=== PATIENT | female | born 1960 | race Caucasian/White ===

== ENCOUNTER → 2023-06-23 06:31 | Day surgery (SDC) | payer OTHER, SELFPAY | LOC: GI 06:31 | PROVIDERS: ATTENDING PHYSICIAN Internal Medicine | DX: K57.30 Diverticulosis of large intestine without perforation or abscess without bleeding (principal); K64.9 Unspecified hemorrhoids; R93.3 Abnormal findings on diagnostic imaging of other parts of digestive tract; Z98.890 Other specified postprocedural states; Z87.19 Personal history of other diseases of the digestive system | CPT/HCPCS: 45330 ==

== ENCOUNTER 2023-08-23 06:16 | Day surgery (SDC) | payer OTHER, SELFPAY ==
[2023-08-23 11:00] VITALS: BP 133/96
[2023-08-23 11:06] VITALS: BMI 28.8
[2023-08-23 13:10] VITALS: BP 114/83
[2023-08-23 13:30] VITALS: BP 121/88
[2023-08-23 13:45] VITALS: BP 150/103
== END 2023-08-23 14:00 | disposition home or self-care (01) ==
LOC: SDS 06:16
PROVIDERS: ATTENDING PHYSICIAN Internal Medicine Gastroenterology
DX: D13.6 Benign neoplasm of pancreas (principal); K86.2 Cyst of pancreas; K76.89 Other specified diseases of liver; K86.9 Disease of pancreas, unspecified
CPT/HCPCS: 43242; 88173

== ENCOUNTER 2023-12-01 06:21 | Day surgery (SDC) | payer OTHER, SELFPAY ==
[2023-11-22 08:57] VITALS: BMI 28.1
[2023-12-01] VITALS (12 sets, daily range): BP systolic 117–160; BP diastolic 69–104; BMI 28.1
[2023-12-01] MEDS: TYLENOL 1000 MG PO (08:36)
[2023-12-01] MEDS: NORMOSOL-R 1000 IV (08:42)
--- NOTE | 2023-12-01 10:51 | W.IMMPOSTOP ---
Surgical Immed Post Op Note
-
Primary Surgeon: Andrey Ge MD
Assisting Surgeon: None
Pre-op Diagnosis: Biliary colic
Post-op Diagnosis: Chronic cholecystitis
Procedure Performed: Laparoscopic cholecystectomy with cholangiogram
Anesthesia Type: General
Specimen / Cultures:
1. Gallbladder and contents
2. Wound culture aerobic and anaerobic
Estimated Blood Loss: 7 cc
Complications: None
Operative Findings: Contracted, intrahepatic gallbladder and a little bit more lateral than typical. Converted to a top-down cholecystectomy. There was some spillage of thick white opalescent 'bile' which was suctioned up as well as some small
stones which were removed. A 4 x 4 sponge was placed in the surgical bed to help collect any spilled stones and fluid. The cystic artery was identified and clipped. The gallbladder neck was identified and a cholangiogram was performed which
demonstrated normal biliary anatomy and no distal filling defects. The neck of the gallbladder was ligated with a 0 PDS Endoloop.
Postop plan:
Will discharge home with a 4-day course of antibiotics.
[2023-12-01] MEDS: DILAUDID 0.5 MG IV ×2 (10:53→11:15)
[2023-12-01] MEDS: ZOFRAN 4 MG IV ×2 (10:53→12:42)
--- NOTE | 2023-12-01 10:55 | W.SUR.PREOP ---
Pre-Operative Surgical Note
-
I have examined this patient prior to the performance of the scheduled procedure.
The patient's condition is unchanged from the time of the current History and
Physical and the patient is able to undergo the scheduled procedure.
--- NOTE | 2023-12-01 10:55 | OR.RPT ---
Operative Report
Operative Report
Patient Name: Mehnaz Chahal
: 1960
Date of Operation: 12/01/2023
Preoperative Diagnosis: Symptomatic Cholelithiasis
Postoperative Diagnosis: Chronic cholecystitis
Procedure(s):
Laparoscopic Cholecystectomy with Cholangiogram
Surgeon(s):
Dr. Ge
[place] Hoist Operator(s):
ERIC Ro
Anesthesia: General
Estimated Blood Loss: 7 cc
Urine Output: None
Drains/Lines/Implants: None
Specimens:
1. Gallbladder and contents
2. Wound culture for aerobic and anaerobic
HPI/Surgical Indications:
This is a 62 year old female who presents with chronic right upper quadrant abdominal pain. Exam, labs and imaging are consistent with symptomatic cholelithiasis. Risks/Benefits/Alternatives were discussed at length, and the patient agreed to
proceed with surgery.
Operative Findings: Contracted, intrahepatic gallbladder and a little bit more lateral than typical. Converted to a top-down cholecystectomy. There was some spillage of thick white opalescent 'bile' which was suctioned up as well as some small
stones which were removed. A 4 x 4 sponge was placed in the surgical bed to help collect any spilled stones and fluid. The cystic artery was identified and clipped. The gallbladder neck was identified and a cholangiogram was performed which
demonstrated normal biliary anatomy and no distal filling defects. The neck of the gallbladder was ligated with a 0 PDS Endoloop.
Procedure Description:
The patient was brought to the Operating Room and placed in the supine position. IV antibiotics were infused and sequential compression devices were confirmed to be on. Following uneventful induction of general endotracheal anesthesia, an
orogastric tube was placed. The abdomen was prepped and draped in the usual sterile fashion. The abdomen was entered using a left upper quadrant of Veress technique which required 1 pass followed by a right upper quadrant periumbilical 5 mm
Optiview trocar. Pneumoperitoneum to 15 mmHg pressure was obtained without difficulty and we confirmed that no injury had occurred during our entry. The patient was positioned in reverse trendelenberg and rotated with the right side up slightly.
Two, and a 12 mm port in the epigastrium 5mm trocars were then placed along the right subcostal margin. The gallbladder was identified and slightly more lateral position than usual. There is dense periduodenal/omental fat plastered to the surface
of the gallbladder consistent with chronic cholecystitis. As we began taking this down it was clear the gallbladder was also quite intrahepatic. Once the all the adhesions were lysed, a locking grasping forceps was placed on the fundus of the
gallbladder where it was then retracted cephalad and to the right. Using appropriate grasping instruments, the peritoneum overlying the presumed triangle of Calot was incised. As the gallbladder was quite contracted and intrahepatic it was hard to
get a good sense of her anatomy. We did get into some bleeding concerning for the cystic artery which was clipped. We then elected to convert to a top-down approach. We did get into the gallbladder and there was some spillage of thick white
opalescent material which was cultured and suctioned. We continued taking the gallbladder down towards the neck of the gallbladder. Here there was a very large stone that was clearly impacted, consistent with what was seen on her preoperative CT
scan. Here the tissues were quite friable and the gallbladder essentially split. The neck of the gallbladder/cystic duct junction was identified and cannulated with a [place] forceps with expression of hydrops. This was then cannulated with our
cholangiocatheter and intraoperative cholangiogram was performed using fluoroscopy. The cholangiogram demonstrated normal biliary anatomy with the right anterior and posterior hepatic ducts as well as the left Paddock duct clearly identified.
There was good flow of contrast into the duodenum and no distal filling defects. The C-arm was removed and the patient was resumed back into their previous position. The catheter was removed and neck was quite thick it was controlled with a 0 PDS
Endoloop as the. The remaining attachments of the gallbladder were divided and the gallbladder along with the 4 x 4 gauze sponge was placed into a Endo Catch bag. There was 1 additional loose stone that was identified and removed. At the area was
then flooded with saline and suctioned until clear. Hemostasis was confirmed. The gallbladder was extracted through the 12 mm trocar site using an endocatch bag. The fascia did have to be dilated slightly to accommodate the large stone as well is
the skin. The abdomen was then inspected and excellent hemostasis was assured. All remaining trocars were then removed and the pneumoperitoneum was evacuated. The 12 mm trocar site was closed using a figure of 8 of 0 PDS. All trocar sites were
closed at the skin level using 4-0 Monocryl followed by Dermabond. Overall, the patient tolerated the procedure well and was taken to the Recovery Room postoperatively in stable condition.
I was the attending physician and performed the procedure with assistance from the PA above. The assistance of Charlene Mckeon was required due to the complexity of the procedure. During the procedure she assisted with retraction, resection, and closure
of the wound. I was present for all portions of the case, excluding skin closure.
Andrey Ge MD
[2023-12-01] MEDS: MOTRIN 600 MG PO (12:42)
== END 2023-12-01 13:27 | disposition home or self-care (01) ==
LOC: SDS 06:21
PROVIDERS: ATTENDING PHYSICIAN Surgery; FAMILY PHYSICIAN Family Medicine
DX: K80.10 Calculus of gallbladder with chronic cholecystitis without obstruction (principal)
CPT/HCPCS: 47563; 88304; 88311; 36415; 74300; 76000; 87070; 87075; 87205; 93005

== ENCOUNTER 2025-03-13 07:06 | Outpatient (RCR) | payer OTHER, SELFPAY | END 2025-03-13 23:59 | disposition home or self-care (01) | LOC: RPT 07:06 | PROVIDERS: ATTENDING PHYSICIAN Advanced Practice Midwife; FAMILY PHYSICIAN Family Medicine | DX: N81.6 Rectocele (principal); M62.89 Other specified disorders of muscle; Z73.6 Limitation of activities due to disability; R35.1 Nocturia | CPT/HCPCS: 97112; 97162; 97530 ==